=== PATIENT | female | born 1960 | race Caucasian/White ===

== ENCOUNTER 2020-08-24 06:42 | Day surgery (SDC) | payer OTHER ==
[~2020-08-24] VITALS: Ht 160 cm; Wt 93.8 kg
[~2020-08-24 06:42] MED LIST: ALEVE 220MG220 MG PO; BCP; COD LIVER OIL 11 SGL PO; DHA PO; EFFEXOR-XR150 MG PO; FERROUS SU325 MG/TAB PO; ROZEREM; T3; [UNRECOGNIZED DRUG - OTHER] PO
--- NOTE | 2020-08-24 09:23 | NUR ---
[facility] returns to [facility]. Spouse remains in the room.
[2020-08-24 10:01] VITALS: BP 145/80; PULSE 66; TEMP 98.3
[2020-08-24] MEDS ORDERED: TOPAMAX50 MG PO (10:08)
[2020-08-24] MEDS ORDERED: [UNRECOGNIZED DRUG - OTHER] PO (10:09)
[2020-08-24] MEDS ORDERED: T3 PO (10:10)
[2020-08-24] MEDS ORDERED: GLUCOPHAGE XR500 M1 PO (10:11)
[2020-08-24] MEDS ORDERED: EFFEXOR XR75 MG/CAP PO (10:12)
[2020-08-24] MEDS ORDERED: WELLBUTRIN XL150 MG PO (10:13)
[2020-08-24] MEDS ORDERED: FLEXERIL 1010 MG/TAB PO (10:13)
[2020-08-24] MEDS ORDERED: PROMETRIUM100 MG PO (10:14)
[2020-08-24] MEDS ORDERED: PREVAGEN PO (10:15)
[2020-08-24] MEDS ORDERED: PEPCID 20MG TAB20 MG PO (10:15)
[2020-08-24] MEDS ORDERED: VITAMIND3 5000 PO (10:17)
[2020-08-24] MEDS ORDERED: GINKGO60 MG PO (10:18)
[2020-08-24] MEDS ORDERED: VITAMINC1000TA PO (10:18)
[2020-08-24] MEDS ORDERED: THE MEDICINE S200 M2 PO (10:19)
[2020-08-24] MEDS ORDERED: MASON NATURAL1200 MG PO (10:19)
[2020-08-24] MEDS ORDERED: [UNRECOGNIZED DRUG - OTHER] PO (10:20)
[2020-08-24] MEDS ORDERED: MELATIN 3 MG-11 TAB PO (10:21)
[2020-08-24] MEDS ORDERED: DUO-KAPS1 CAP PO (10:21)
[2020-08-24] MEDS ORDERED: XANAX 0.5MG0.5 MG PO (10:22)
[2020-08-24] MEDS ORDERED: CALCIUM-MAGNES1 EAC1 PO (10:23)
[2020-08-24] MEDS ORDERED: 5-HTP100 MG PO (10:24)
[2020-08-24] MEDS ORDERED: TYLENOL 500MG500 MG PO (10:25)
--- NOTE | 2020-08-24 10:35 | NUR ---
Patient returns from radiology per wheelchair and readied for surgery. Accucheck of 82 reported to Dorie MCCLELLAN. LR infusing and 100cc/hr #20G RA. Spouse remains at bedside.
[2020-08-24] MEDS ORDERED: NORCO 325 MG-51 TAB PO (12:59)
[2020-08-24 13:20] VITALS: BP 135/68; PULSE 65
--- NOTE | 2020-08-24 13:20 | NUR ---
Patient returns to room 5 per cart from surgery and is awake and alert. Temp 98.2 and room air sat 100%. Dressing to the left breast region x2 clean and dry. Denies pain or nausea. Patient sipping on coffee and diet Mountain Dew. Spouse in room. Siderails up x2 and call light in reach. IV fluids infusing.
[2020-08-24 13:35] VITALS: BP 137/68; PULSE 62
--- NOTE | 2020-08-24 13:35 | NUR ---
Resting and continues to sip on fluids without nausea or vomiting. Spouse at bedside.
[2020-08-24 13:42] VITALS: TEMP 98.6
[2020-08-24 13:50] VITALS: BP 141/75; PULSE 69
--- NOTE | 2020-08-24 13:50 | NUR ---
Eating toast and sipping on coffee.
[2020-08-24 14:05] VITALS: BP 138/66; PULSE 71
--- NOTE | 2020-08-24 14:05 | NUR ---
Resting and denies pain or nausea. Talking with spouse.
--- NOTE | 2020-08-24 14:10 | NUR ---
Assisted up to the bathroom and IV to INT. Able to void and returns to room. Gait steady. INT discontinued and site is free of redness. Patient dresses self.
--- NOTE | 2020-08-24 14:28 | NUR ---
Dismissal instructions given and voices understanding of these. Provided follow up appointment date and time.
--- NOTE | 2020-08-24 14:33 | NUR ---
Patient discharged to home driven by spouse and taken to the front door per wheelchair and assisted into vehicle and dismissed to home with instructions in hand.
== END 2020-08-24 14:33 | disposition home or self-care (01) ==
LOC: SDCO 06:42
DX: C50.412 Malignant neoplasm of upper-outer quadrant of left female breast (principal); C77.3 Secondary and unspecified malignant neoplasm of axilla and upper limb lymph nodes; K21.9 Gastro-esophageal reflux disease without esophagitis; D64.9 Anemia, unspecified; M19.90 Unspecified osteoarthritis, unspecified site; F32.9 Major depressive disorder, single episode, unspecified; E11.9 Type 2 diabetes mellitus without complications; E03.9 Hypothyroidism, unspecified; Z17.0 Estrogen receptor positive status [ER+]; Z88.5 Allergy status to narcotic agent
CPT/HCPCS: A9541; J0690; J1100; J2250; J2405; J2704; J2795; J3010; J7120